=== PATIENT | female | born 1955 | race Caucasian/White ===

== ENCOUNTER → 2016-05-16 | Outpatient (CLI) | payer MEDICARE, OTHER ==
--- NOTE | 2016-05-16 14:39 | RADRPT ---
PROCEDURE: XR Pelvis and Hips. CLINICAL INDICATION: Pelvic pain. Bilateral hip pain. TECHNIQUE: Five views. Frontal pelvis. Frontal and lateral right hip. Frontal and lateral left hip. COMPARISON: No prior studies are available for comparison. FINDINGS: There is no acute fracture or dislocation. There is an old healed fracture of the left inferior pub ic ramus with minimal deformity. The soft tissues are normal. There are degenerative changes of the hips with osteophytes and mild joint space narrowing. There is no lytic or blastic lesion. There is no radiopaque foreign body. IMPRESSION: 1. Old healed fracture of the left inferior pubic ramus. 2. 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 3. Otherwise unremarkable study. RPTAT: QQ .Howie Tenorio MD, Date Time Electronically viewed and signed by .Howie Tenorio MD, on 05/16/2016 14:38 .R/
== END | disposition home or self-care (01) ==
LOC: HKI 11:10
PROVIDERS: ATTEND Orthopaedic Surgery
DX: M51.36 Other intervertebral disc degeneration, lumbar region (principal); M41.26 Other idiopathic scoliosis, lumbar region; M48.06 Spinal stenosis, lumbar region; M70.61 Trochanteric bursitis, right hip; M70.62 Trochanteric bursitis, left hip
CPT/HCPCS: 73523; G0463